=== PATIENT | female | born 1960 | race Caucasian/White ===

== ENCOUNTER → 2016-10-02 | Outpatient (CLI) | payer BC ==
[~2016-10-02] MED LIST: ACET-1079 PO; ALB2.5IS NEB; ALPR0.254 PO; ASPI325T4 PO; ATEN-60 PO; ATOR20TA50 PO; FAM20T PO; FLUT500M2 IN; GABA800T87 PO; INSLANTI SC; LORA-655 PO; NAS17NSL; NOR10T PO; PHEN1TAB64 PO; PREG75CA PO; TRIA37.575 PO; TRIATAB3 PO; ZAFI1TAB2 PO
[2016-10-02 12:22] LABS: Basophils # (auto) 0.1 uL; Basophils % (auto) 0.5 % (0.0-2.0); Eosinophils # (auto) 0 uL; Hematocrit 44.2 % (36.0-46.0); Hemoglobin 14.6 g/dL (12.2-16.2); Lymphocytes # (auto) 3.4 uL; Lymphocytes % (auto) 29.8 % (10.0-50.0); Mean Corpuscular Hemoglobin 31.5 pg (28.0-32.0); Mean Corpuscular Hgb Conc. 33.1 g/dL (32.0-36.0); Mean Corpuscular Volume 95.3 fL (80.0-100.0); Mean Platelet Volume 8.9 fL (7.4-10.4); Monocytes # (auto) 0.8 uL; Neutrophils # (auto) 7.2 uL; Neutrophils % (auto) 62.7 % (37.0-80.0); Platelet Count (auto) 266 10^3/uL (140-450); Red Cell Distribution Width 13.6 % (11.6-16.0); SUSPECT VIEW TRANSMISSION; White Blood Cell 11.5 10^3/uL (4.4-10.8)
[2016-10-02 12:53] LABS: Albumin 3.5 g/dL (3.4-5.0); Alkaline Phosphatase 119 U/L (45-117); Anion Gap 11 (5-15); Aspartate Aminotransferase 20 U/L (15-37); BUN/Creatinine Ratio 23.2; Bilirubin, Direct < 0.1 mg/dL (0-0.2); Bilirubin, Total 0.4 mg/dL (0.2-1.0); Blood Urea Nitrogen 23 mg/dL (7-18); Calcium 9.2 mg/dL (8.5-10.1); Carbon Dioxide 26 mmol/L (21-32); Chloride 105 mmol/L (98-107); Cholesterol 206 mg/dL (<200); GFR African American 74 mL/min; GFR Non-African American 61 mL/min; Glucose 116 mg/dL (74-106); HDL Cholesterol 60 mg/dL (40-59); LDL Cholesterol 133 mg/dL (<100); Potassium 4.6 mmol/L (3.5-5.1); Sodium 142 mmol/L (136-145); Total Protein 7.4 g/dL (6.4-8.2); Triglycerides 108 mg/dL (<150)
== END | disposition home or self-care (01) ==
LOC: Rad HDHVI 10:12
PROVIDERS: ATTEND Internal Medicine Cardiovascular Disease
DX: I10 Essential (primary) hypertension (principal); E78.00 Pure hypercholesterolemia, unspecified; K74.1 Hepatic sclerosis; E11.9 Type 2 diabetes mellitus without complications; E03.9 Hypothyroidism, unspecified; D64.9 Anemia, unspecified; E55.9 Vitamin D deficiency, unspecified; G40.89 Other seizures
CPT/HCPCS: 36415; 72131; 73700; 80048; 80061; 80076; 80184; 82306; 83036; 84443; 85025

== ENCOUNTER 2016-11-28 13:41 | Inpatient (IN) | payer BC ==
[~2016-11-28] VITALS: Ht 157.5 cm; Wt 129.7 kg
[2016-11-28 15:08] LABS: Basophils # (auto) 0.1 uL; Basophils % (auto) 0.4 % (0.0-2.0); Eosinophils # (auto) 0 uL; Hematocrit 42.9 % (36.0-46.0); Hemoglobin 14.3 g/dL (12.2-16.2); Lymphocytes # (auto) 2.6 uL; Lymphocytes % (auto) 18.3 % (10.0-50.0); Mean Corpuscular Hemoglobin 31.5 pg (28.0-32.0); Mean Corpuscular Hgb Conc. 33.3 g/dL (32.0-36.0); Mean Corpuscular Volume 94.5 fL (80.0-100.0); Mean Platelet Volume 8.5 fL (7.4-10.4); Monocytes # (auto) 0.6 uL; Monocytes % (auto) 4.1 % (0.0-12.0); Neutrophils # (auto) 10.8 uL; Neutrophils % (auto) 77.2 % (37.0-80.0); Platelet Count (auto) 327 10^3/uL (140-450); Red Cell Distribution Width 14.1 % (11.6-16.0); White Blood Cell 14.1 10^3/uL (4.4-10.8)
[2016-11-28 15:43] LABS: Albumin 3.5 g/dL (3.4-5.0); Alkaline Phosphatase 117 U/L (45-117); Anion Gap 10 (5-15); Aspartate Aminotransferase 15 U/L (15-37); BUN/Creatinine Ratio 23.1; Bilirubin, Total 0.3 mg/dL (0.2-1.0); Blood Urea Nitrogen 21 mg/dL (7-18); Calcium 8.9 mg/dL (8.5-10.1); Carbon Dioxide 26 mmol/L (21-32); Chloride 99 mmol/L (98-107); GFR African American 82 mL/min; GFR Non-African American 67 mL/min; Glucose 176 mg/dL (74-106); Magnesium 2.4 mg/dL (1.6-2.6); Potassium 4.3 mmol/L (3.5-5.1); Sodium 135 mmol/L (136-145); Total Protein 7.5 g/dL (6.4-8.2)
[2016-11-28] MEDS ORDERED: IOHEXOL 350 MG/ML 100ML IJ ONE ×2 (21:56→22:31)
[2016-11-29] MEDS ORDERED: ONDANSETRON HCL 4 MG/2 ML VIAL IV ONE (00:15)
[2016-11-29] MEDS ORDERED: MORPHINE SULFATE 4 MG/ML SYRG IV ONE (00:15)
[2016-11-29] MEDS ORDERED: DOCUSATE SOD 100 MG CAP PO PRN (02:00)
[2016-11-29] MEDS ORDERED: TEMAZEPAM 15 MG CAP PO PRN (02:00)
[2016-11-29] MEDS ORDERED: ONDANSETRON HCL 4 MG/2 ML VIAL IV PRN (02:00)
[2016-11-29] MEDS: ALBUTEROL SULF 2.5 MG/0.5ML(0.5%) NEB SOLN NEB SCH ×6 (02:40→22:20)
[2016-11-29] MEDS: IPRATROPIUM BROM 0.5 MG/2.5ML INH SOL NEB SCH ×6 (02:40→22:21)
[2016-11-29 03:00] VITALS: BP 152/79
[2016-11-29] MEDS: ACETAMINOPHEN 325 MG TAB PO PRN ×2 (03:09→09:22)
[2016-11-29] MEDS ORDERED: LEVO25TA6 PO (05:21)
[2016-11-29] MEDS ORDERED: PRO625LQ PO (05:21)
[2016-11-29] MEDS: SODIUM CHLOR 0.9% PF (SALINE LOCK) 10ML VIAL IV SCH ×3 (05:46→21:51)
[2016-11-29] MEDS ORDERED: methylPREDNISolone SOD SUCC 125 MG/2 ML VL IV SCH (06:00)
[2016-11-29 09:00] VITALS: BP 123/67
[2016-11-29] MEDS: MORPHINE SULF INJ 2 MG/ML SYRINGE 1ML IV PRN ×2 (09:24→16:49)
[2016-11-29] MEDS: FAMOTIDINE 20 MG TAB PO SCH ×2 (09:24→21:42)
[2016-11-29] MEDS ORDERED: DEXTROSE (50%) 50ML SYRG IV PRN (10:45)
[2016-11-29] MEDS ORDERED: LORazepam 0.5 MG TAB PO PRN (11:30)
[2016-11-29] MEDS: InsuLIN REG 1unit/0.01ml Soln (100units/ml) SC SCH ×3 (11:47→21:46)
[2016-11-29] MEDS: ACCU-CHEK COMFORT CURVE STRIP VI SCH ×3 (11:47→21:47)
[2016-11-29] MEDS ORDERED: predniSONE 5 MG TAB PO SCH (12:00)
[2016-11-29] MEDS ORDERED: PHENobarbital 32.4 MG TAB PO SCH ×2 (12:00→22:00)
[2016-11-29] MEDS: GABAPENTIN 400 MG CAP PO SCH ×2 (12:13→21:43)
[2016-11-29] MEDS: ATENOLOL 25 MG TAB PO SCH ×2 (12:13→21:43)
[2016-11-29] MEDS: ASPirin 325 MG TAB PO SCH (12:14)
[2016-11-29] MEDS: RANOLAZINE ER 500 MG TAB PO SCH ×2 (12:15→21:59)
[2016-11-29] MEDS ORDERED: GABA400C PO (12:19)
[2016-11-29] MEDS ORDERED: PHEN32.49 PO (12:23)
[2016-11-29] MEDS ORDERED: RANO1000 PO (12:23)
[2016-11-29] MEDS ORDERED: FLUT500M2 INH (12:26)
[2016-11-29 13:00] VITALS: BP 110/58
[2016-11-29] MEDS ORDERED: cefTRIAXone 1GM/50ML D5W 50 ML IV ONE (16:00)
[2016-11-29] MEDS ORDERED: AZITHROMYCIN 250 MG TAB PO ONE (16:00)
[2016-11-29 18:25] VITALS: BP 105/49
[2016-11-29 21:00] VITALS: BP 106/58
[2016-11-29] MEDS: methylPREDNISolone SOD SUCC 40 MG/ML VL IV SCH (21:42)
[2016-11-29] MEDS: PREGABALIN CAPSULE 75 MG CAP PO SCH (21:43)
[2016-11-29] MEDS: ATORVASTATIN 20 MG TAB PO SCH (21:43)
[2016-11-29] MEDS: ALPRAZolam 0.25 MG TAB PO SCH (21:44)
[2016-11-29] MEDS ORDERED: TRIAMTERENE/HCTZ 37.5/25 MG CAP PO SCH (22:00)
[2016-11-29] MEDS: INSULIN DETEMIR(LEVEMIR) 1unit/0.01ml Soln (100units/ml) SC SCH (22:19)
[2016-11-30] MEDS ORDERED: DOXY1CAP82 PO (01:23)
[2016-11-30] MEDS ORDERED: PHEN32.49 PO ×3 (01:23→01:31)
[2016-11-30] MEDS: IPRATROPIUM BROM 0.5 MG/2.5ML INH SOL NEB SCH ×6 (02:23→19:00)
[2016-11-30] MEDS: ALBUTEROL SULF 2.5 MG/0.5ML(0.5%) NEB SOLN NEB SCH ×6 (02:23→23:35)
[2016-11-30 05:00] VITALS: BP 138/58
[2016-11-30] MEDS: GABAPENTIN 400 MG CAP PO SCH ×3 (05:38→21:37)
[2016-11-30] MEDS: LEVOTHYROXINE SODIUM 25 MCG TAB PO SCH (05:38)
[2016-11-30] MEDS: SODIUM CHLOR 0.9% PF (SALINE LOCK) 10ML VIAL IV SCH ×3 (05:52→21:40)
[2016-11-30] MEDS: HYDROcodone-ACET 10/325MG TAB PO PRN ×2 (05:55→20:47)
[2016-11-30] MEDS: InsuLIN REG 1unit/0.01ml Soln (100units/ml) SC SCH ×4 (06:22→22:00)
[2016-11-30] MEDS: ACCU-CHEK COMFORT CURVE STRIP VI SCH ×4 (06:22→22:00)
[2016-11-30] MEDS: INSULIN DETEMIR(LEVEMIR) 1unit/0.01ml Soln (100units/ml) SC SCH ×2 (06:25→23:08)
[2016-11-30 06:56] LABS: Basophils # (auto) 0 uL; Basophils % (auto) 0.3 % (0.0-2.0); Eosinophils # (auto) 0 uL; Eosinophils % (auto) 0.1 % (0.0-7.0); Hematocrit 40.7 % (36.0-46.0); Hemoglobin 13.8 g/dL (12.2-16.2); Lymphocytes # (auto) 3.2 uL; Lymphocytes % (auto) 27.9 % (10.0-50.0); Mean Corpuscular Hemoglobin 32.2 pg (28.0-32.0); Mean Corpuscular Hgb Conc. 33.9 g/dL (32.0-36.0); Mean Corpuscular Volume 94.8 fL (80.0-100.0); Mean Platelet Volume 9.1 fL (7.4-10.4); Monocytes # (auto) 0.8 uL; Monocytes % (auto) 6.8 % (0.0-12.0); Neutrophils # (auto) 7.4 uL; Neutrophils % (auto) 64.9 % (37.0-80.0); Platelet Count (auto) 293 10^3/uL (140-450); Red Cell Distribution Width 14.3 % (11.6-16.0); White Blood Cell 11.3 10^3/uL (4.4-10.8)
[2016-11-30 07:41] LABS: Albumin 3.4 g/dL (3.4-5.0); BUN/Creatinine Ratio 21.8; Bilirubin, Total 0.4 mg/dL (0.2-1.0); Calcium 8.9 mg/dL (8.5-10.1); Potassium 4.7 mmol/L (3.5-5.1); Total Protein 7.4 g/dL (6.4-8.2)
[2016-11-30 07:56] VITALS: BP 138/58
[2016-11-30 08:32] VITALS: BP 88/47
[2016-11-30] MEDS: cefTRIAXone 1GM/50ML D5W 50 ML IV SCH (09:09)
[2016-11-30] MEDS: methylPREDNISolone SOD SUCC 40 MG/ML VL IV SCH ×2 (09:09→21:39)
[2016-11-30] MEDS: PREGABALIN CAPSULE 75 MG CAP PO SCH ×2 (09:10→21:37)
[2016-11-30] MEDS: ASPirin 325 MG TAB PO SCH (09:10)
[2016-11-30] MEDS: ALPRAZolam 0.25 MG TAB PO SCH (09:10)
[2016-11-30] MEDS: AZITHROMYCIN 250 MG TAB PO SCH (09:10)
[2016-11-30] MEDS: TRIAMTERENE/HCTZ 37.5/25 MG CAP PO SCH (09:11)
[2016-11-30] MEDS: ATENOLOL 25 MG TAB PO SCH ×2 (09:11→21:39)
[2016-11-30] MEDS: FAMOTIDINE 20 MG TAB PO SCH ×2 (09:11→21:37)
[2016-11-30] MEDS: RANOLAZINE ER 500 MG TAB PO SCH ×2 (09:31→21:39)
[2016-11-30] MEDS ORDERED: AZITHROMYCIN 500MG/D5W 250ML 250 ML IV SCH (10:00)
[2016-11-30] MEDS ORDERED: TRIAMTERENE/HCTZ 37.5/25 MG CAP PO SCH (10:00)
[2016-11-30] MEDS ORDERED: PATIENTS OWN MEDICATION PO SCH ×2 (10:00)
[2016-11-30 12:35] LABS: Urine Bilirubin Negative (Negative); Urine Blood Negative /uL (Negative); Urine Color Yellow (Yellow); Urine Glucose Normal (Normal); Urine Ketone Negative (Negative); Urine Nitrite Negative (Negative); Urine RBC 1 /hpf (0 - 4); Urine Squamous Epithelial Cell FEW /hpf (<5); Urine Urobilinogen Normal (Negative); Urine pH 6.5 (5.0-8.0)
[2016-11-30] MEDS: LORazepam 0.5 MG TAB PO PRN (13:41)
[2016-11-30 13:51] VITALS: BP 114/67
[2016-11-30 17:12] VITALS: BP 118/70
[2016-11-30] MEDS: MORPHINE SULF INJ 2 MG/ML SYRINGE 1ML IV PRN (17:36)
[2016-11-30] MEDS: ATORVASTATIN 20 MG TAB PO SCH (21:37)
[2016-11-30] MEDS: PHENobarbital 32.4 MG TAB PO SCH (21:38)
[2016-11-30 22:00] VITALS: BP 132/56
[2016-12-01] MEDS: IPRATROPIUM BROM 0.5 MG/2.5ML INH SOL NEB SCH ×6 (02:00→22:52)
[2016-12-01] MEDS: ALBUTEROL SULF 2.5 MG/0.5ML(0.5%) NEB SOLN NEB SCH ×6 (02:00→22:52)
[2016-12-01] MEDS: MORPHINE SULF INJ 2 MG/ML SYRINGE 1ML IV PRN ×2 (04:37→15:15)
[2016-12-01 05:55] VITALS: BP 115/68
[2016-12-01] MEDS: SODIUM CHLOR 0.9% PF (SALINE LOCK) 10ML VIAL IV SCH ×3 (06:19→21:25)
[2016-12-01] MEDS: ACCU-CHEK COMFORT CURVE STRIP VI SCH ×4 (06:20→20:59)
[2016-12-01] MEDS: LEVOTHYROXINE SODIUM 25 MCG TAB PO SCH (06:20)
[2016-12-01] MEDS: InsuLIN REG 1unit/0.01ml Soln (100units/ml) SC SCH ×4 (06:20→21:29)
[2016-12-01] MEDS: GABAPENTIN 400 MG CAP PO SCH ×3 (06:20→21:38)
[2016-12-01] MEDS: INSULIN DETEMIR(LEVEMIR) 1unit/0.01ml Soln (100units/ml) SC SCH ×2 (06:27→21:49)
[2016-12-01 09:00] VITALS: BP 120/76
[2016-12-01] MEDS: cefTRIAXone 1GM/50ML D5W 50 ML IV SCH (09:00)
[2016-12-01] MEDS: RANOLAZINE ER 500 MG TAB PO SCH ×2 (10:00→21:29)
[2016-12-01] MEDS: methylPREDNISolone SOD SUCC 40 MG/ML VL IV SCH ×2 (10:00→21:25)
[2016-12-01] MEDS: ASPirin 325 MG TAB PO SCH (10:39)
[2016-12-01] MEDS: PREGABALIN CAPSULE 75 MG CAP PO SCH ×2 (10:39→21:26)
[2016-12-01] MEDS: TRIAMTERENE/HCTZ 37.5/25 MG CAP PO SCH (10:40)
[2016-12-01] MEDS: AZITHROMYCIN 250 MG TAB PO SCH (10:40)
[2016-12-01] MEDS: LORazepam 0.5 MG TAB PO PRN ×2 (10:40→22:08)
[2016-12-01] MEDS: FAMOTIDINE 20 MG TAB PO SCH ×2 (10:41→21:26)
[2016-12-01] MEDS: HYDROcodone-ACET 10/325MG TAB PO PRN ×2 (10:41→20:45)
[2016-12-01] MEDS: ATENOLOL 25 MG TAB PO SCH ×2 (10:41→21:40)
[2016-12-01 13:00] VITALS: BP 112/70
[2016-12-01 17:00] VITALS: BP 99/62
[2016-12-01 21:16] VITALS: BP 104/57
[2016-12-01] MEDS: PHENobarbital 32.4 MG TAB PO SCH (21:26)
[2016-12-01] MEDS: ATORVASTATIN 20 MG TAB PO SCH (21:26)
[2016-12-02] VITALS (7 sets, daily range): BP systolic 104–133; BP diastolic 65–84
[2016-12-02] MEDS: ALBUTEROL SULF 2.5 MG/0.5ML(0.5%) NEB SOLN NEB SCH ×6 (02:22→23:00)
[2016-12-02] MEDS: IPRATROPIUM BROM 0.5 MG/2.5ML INH SOL NEB SCH ×6 (02:22→23:00)
[2016-12-02] MEDS: MORPHINE SULF INJ 2 MG/ML SYRINGE 1ML IV PRN ×3 (03:49→17:55)
[2016-12-02] MEDS: GABAPENTIN 400 MG CAP PO SCH ×3 (06:24→22:39)
[2016-12-02] MEDS: LEVOTHYROXINE SODIUM 25 MCG TAB PO SCH ×2 (06:24→22:40)
[2016-12-02] MEDS: SODIUM CHLOR 0.9% PF (SALINE LOCK) 10ML VIAL IV SCH ×3 (06:24→22:38)
[2016-12-02] MEDS: ACCU-CHEK COMFORT CURVE STRIP VI SCH ×4 (06:25→22:41)
[2016-12-02] MEDS: InsuLIN REG 1unit/0.01ml Soln (100units/ml) SC SCH ×4 (06:31→22:41)
[2016-12-02] MEDS: INSULIN DETEMIR(LEVEMIR) 1unit/0.01ml Soln (100units/ml) SC SCH ×2 (06:32→22:51)
[2016-12-02] MEDS: HYDROcodone-ACET 10/325MG TAB PO PRN ×3 (06:33→22:40)
[2016-12-02] MEDS: methylPREDNISolone SOD SUCC 40 MG/ML VL IV SCH ×2 (09:31→22:39)
[2016-12-02] MEDS: cefTRIAXone 1GM/50ML D5W 50 ML IV SCH (09:32)
[2016-12-02] MEDS: RANOLAZINE ER 500 MG TAB PO SCH ×2 (09:33→22:39)
[2016-12-02] MEDS: AZITHROMYCIN 250 MG TAB PO SCH (09:34)
[2016-12-02] MEDS: TRIAMTERENE/HCTZ 37.5/25 MG CAP PO SCH (09:35)
[2016-12-02] MEDS: PREGABALIN CAPSULE 75 MG CAP PO SCH ×2 (09:35→22:40)
[2016-12-02] MEDS: ASPirin 325 MG TAB PO SCH (09:40)
[2016-12-02] MEDS: FAMOTIDINE 20 MG TAB PO SCH ×2 (09:42→22:40)
[2016-12-02] MEDS: ATENOLOL 25 MG TAB PO SCH ×2 (09:43→22:40)
[2016-12-02] MEDS: ACETAMINOPHEN 325 MG TAB PO PRN (12:57)
[2016-12-02] MEDS: LORazepam 0.5 MG TAB PO PRN ×2 (12:57→20:59)
[2016-12-02] MEDS: PHENobarbital 32.4 MG TAB PO SCH (22:39)
[2016-12-02] MEDS: ATORVASTATIN 20 MG TAB PO SCH (22:40)
[2016-12-03] MEDS: ALBUTEROL SULF 2.5 MG/0.5ML(0.5%) NEB SOLN NEB SCH ×5 (02:11→23:01)
[2016-12-03] MEDS: IPRATROPIUM BROM 0.5 MG/2.5ML INH SOL NEB SCH ×5 (02:11→23:01)
[2016-12-03] MEDS: MORPHINE SULF INJ 2 MG/ML SYRINGE 1ML IV PRN ×3 (03:19→20:00)
[2016-12-03 04:57] VITALS: BP 125/82
[2016-12-03] MEDS: SODIUM CHLOR 0.9% PF (SALINE LOCK) 10ML VIAL IV SCH ×3 (05:28→21:53)
[2016-12-03] MEDS: GABAPENTIN 400 MG CAP PO SCH ×4 (05:28→22:26)
[2016-12-03] MEDS: ACETAMINOPHEN 325 MG TAB PO PRN (05:29)
[2016-12-03] MEDS: InsuLIN REG 1unit/0.01ml Soln (100units/ml) SC SCH ×4 (06:42→22:00)
[2016-12-03] MEDS: LEVOTHYROXINE SODIUM 25 MCG TAB PO SCH (06:42)
[2016-12-03] MEDS: ACCU-CHEK COMFORT CURVE STRIP VI SCH ×4 (06:43→22:27)
[2016-12-03] MEDS: INSULIN DETEMIR(LEVEMIR) 1unit/0.01ml Soln (100units/ml) SC SCH ×2 (06:45→22:28)
[2016-12-03 09:00] VITALS: BP 123/73
[2016-12-03] MEDS: methylPREDNISolone SOD SUCC 40 MG/ML VL IV SCH ×2 (10:19→21:53)
[2016-12-03] MEDS: PREGABALIN CAPSULE 75 MG CAP PO SCH ×2 (10:19→21:54)
[2016-12-03] MEDS: ASPirin 325 MG TAB PO SCH (10:20)
[2016-12-03] MEDS: TRIAMTERENE/HCTZ 37.5/25 MG CAP PO SCH (10:20)
[2016-12-03] MEDS: FAMOTIDINE 20 MG TAB PO SCH ×2 (10:20→21:55)
[2016-12-03] MEDS: ATENOLOL 25 MG TAB PO SCH ×2 (10:21→21:56)
[2016-12-03] MEDS: RANOLAZINE ER 500 MG TAB PO SCH ×2 (10:22→21:55)
[2016-12-03] MEDS: AZITHROMYCIN 250 MG TAB PO SCH (10:22)
[2016-12-03] MEDS: HYDROcodone-ACET 10/325MG TAB PO PRN ×2 (10:27→16:10)
[2016-12-03] MEDS: cefTRIAXone 1GM/50ML D5W 50 ML IV SCH (10:28)
[2016-12-03 13:00] VITALS: BP 134/79
[2016-12-03] MEDS: LORazepam 0.5 MG TAB PO PRN ×2 (14:50→23:30)
[2016-12-03 17:00] VITALS: BP 153/70
[2016-12-03 20:29] LABS: Basophils # (auto) 0.2 uL; Eosinophils # (auto) 0 uL; Eosinophils % (auto) 0.1 % (0.0-7.0); Hematocrit 41.2 % (36.0-46.0); Hemoglobin 13.7 g/dL (12.2-16.2); Lymphocytes # (auto) 4.2 uL; Lymphocytes % (auto) 24.5 % (10.0-50.0); Mean Corpuscular Hemoglobin 31.6 pg (28.0-32.0); Mean Corpuscular Hgb Conc. 33.3 g/dL (32.0-36.0); Mean Corpuscular Volume 94.9 fL (80.0-100.0); Mean Platelet Volume 8.8 fL (7.4-10.4); Monocytes # (auto) 1.1 uL; Monocytes % (auto) 6.7 % (0.0-12.0); Neutrophils # (auto) 11.6 uL; Neutrophils % (auto) 67.7 % (37.0-80.0); Platelet Count (auto) 317 10^3/uL (140-450); Red Cell Distribution Width 13.8 % (11.6-16.0); White Blood Cell 17.1 10^3/uL (4.4-10.8)
[2016-12-03 20:53] LABS: Albumin 3.5 g/dL (3.4-5.0); BUN/Creatinine Ratio 18.7; Bilirubin, Total 0.4 mg/dL (0.2-1.0); Calcium 8.9 mg/dL (8.5-10.1); Potassium 4.2 mmol/L (3.5-5.1); Total Protein 7.5 g/dL (6.4-8.2)
[2016-12-03] MEDS: ATORVASTATIN 20 MG TAB PO SCH (21:54)
[2016-12-03 22:00] VITALS: BP 128/62
[2016-12-03] MEDS: PHENobarbital 32.4 MG TAB PO SCH (22:27)
[2016-12-04] MEDS: ALBUTEROL SULF 2.5 MG/0.5ML(0.5%) NEB SOLN NEB SCH ×6 (02:35→22:22)
[2016-12-04] MEDS: IPRATROPIUM BROM 0.5 MG/2.5ML INH SOL NEB SCH ×6 (02:35→22:21)
[2016-12-04] MEDS: HYDROcodone-ACET 10/325MG TAB PO PRN ×2 (04:45→22:58)
[2016-12-04 06:00] VITALS: BP 140/82
[2016-12-04] MEDS: MORPHINE SULF INJ 2 MG/ML SYRINGE 1ML IV PRN ×2 (06:21→13:42)
[2016-12-04] MEDS: SODIUM CHLOR 0.9% PF (SALINE LOCK) 10ML VIAL IV SCH ×3 (06:21→22:41)
[2016-12-04] MEDS: ACCU-CHEK COMFORT CURVE STRIP VI SCH ×4 (06:42→22:43)
[2016-12-04] MEDS: GABAPENTIN 400 MG CAP PO SCH ×3 (06:42→22:42)
[2016-12-04] MEDS: INSULIN DETEMIR(LEVEMIR) 1unit/0.01ml Soln (100units/ml) SC SCH ×2 (06:43→22:49)
[2016-12-04] MEDS: InsuLIN REG 1unit/0.01ml Soln (100units/ml) SC SCH ×4 (06:43→22:43)
[2016-12-04] MEDS: LEVOTHYROXINE SODIUM 25 MCG TAB PO SCH (06:44)
[2016-12-04 09:00] VITALS: BP 102/66
[2016-12-04] MEDS: TRIAMTERENE/HCTZ 37.5/25 MG CAP PO SCH (09:01)
[2016-12-04] MEDS: ASPirin 325 MG TAB PO SCH (09:01)
[2016-12-04] MEDS: PREGABALIN CAPSULE 75 MG CAP PO SCH ×2 (09:02→22:42)
[2016-12-04] MEDS: cefTRIAXone 1GM/50ML D5W 50 ML IV SCH (09:02)
[2016-12-04] MEDS: FAMOTIDINE 20 MG TAB PO SCH ×2 (09:02→22:42)
[2016-12-04] MEDS: AZITHROMYCIN 250 MG TAB PO SCH (09:02)
[2016-12-04] MEDS: methylPREDNISolone SOD SUCC 40 MG/ML VL IV SCH ×2 (09:03→22:41)
[2016-12-04] MEDS: RANOLAZINE ER 500 MG TAB PO SCH ×2 (09:15→22:42)
[2016-12-04] MEDS: LORazepam 0.5 MG TAB PO PRN ×2 (09:18→22:48)
[2016-12-04] MEDS: ATENOLOL 25 MG TAB PO SCH ×2 (10:00→22:42)
[2016-12-04 13:00] VITALS: BP 129/74
[2016-12-04 17:00] VITALS: BP 131/66
[2016-12-04 22:00] VITALS: BP 132/71
[2016-12-04] MEDS: ATORVASTATIN 20 MG TAB PO SCH (22:41)
[2016-12-04] MEDS: PHENobarbital 32.4 MG TAB PO SCH (22:41)
[2016-12-05] MEDS: ALBUTEROL SULF 2.5 MG/0.5ML(0.5%) NEB SOLN NEB SCH ×4 (02:01→14:46)
[2016-12-05] MEDS: IPRATROPIUM BROM 0.5 MG/2.5ML INH SOL NEB SCH ×4 (02:01→14:46)
[2016-12-05 05:30] VITALS: BP 125/81
[2016-12-05] MEDS: GABAPENTIN 400 MG CAP PO SCH ×2 (05:45→14:05)
[2016-12-05] MEDS: LEVOTHYROXINE SODIUM 25 MCG TAB PO SCH (05:45)
[2016-12-05] MEDS: SODIUM CHLOR 0.9% PF (SALINE LOCK) 10ML VIAL IV SCH ×2 (05:45→14:18)
[2016-12-05] MEDS: ACCU-CHEK COMFORT CURVE STRIP VI SCH ×2 (05:46→11:34)
[2016-12-05] MEDS: InsuLIN REG 1unit/0.01ml Soln (100units/ml) SC SCH ×2 (05:46→12:15)
[2016-12-05] MEDS: LORazepam 0.5 MG TAB PO PRN ×2 (05:53→14:05)
[2016-12-05] MEDS: HYDROcodone-ACET 10/325MG TAB PO PRN ×2 (05:54→14:18)
[2016-12-05] MEDS: INSULIN DETEMIR(LEVEMIR) 1unit/0.01ml Soln (100units/ml) SC SCH (06:40)
[2016-12-05] MEDS: cefTRIAXone 1GM/50ML D5W 50 ML IV SCH (08:37)
[2016-12-05] MEDS: ASPirin 325 MG TAB PO SCH (08:38)
[2016-12-05] MEDS: ATENOLOL 25 MG TAB PO SCH (08:39)
[2016-12-05] MEDS: AZITHROMYCIN 250 MG TAB PO SCH (08:39)
[2016-12-05] MEDS: FAMOTIDINE 20 MG TAB PO SCH (09:09)
[2016-12-05] MEDS: TRIAMTERENE/HCTZ 37.5/25 MG CAP PO SCH (09:09)
[2016-12-05] MEDS: PREGABALIN CAPSULE 75 MG CAP PO SCH (09:10)
[2016-12-05] MEDS: methylPREDNISolone SOD SUCC 40 MG/ML VL IV SCH (09:11)
[2016-12-05 09:12] VITALS: BP 122/69
[2016-12-05] MEDS: MORPHINE SULF INJ 2 MG/ML SYRINGE 1ML IV PRN (09:12)
[2016-12-05] MEDS: RANOLAZINE ER 500 MG TAB PO SCH (11:30)
[2016-12-05 12:38] VITALS: BP 127/56
[2016-12-05 15:24] VITALS: BP 127/56
[2016-12-05 16:25] VITALS: BP 115/65
== END 2016-12-05 16:50 | disposition home or self-care (01) | DRG 190 ==
LOC: ER 13:46 → EAST 13:47 → TELE-EAST 11-29 02:49
PROVIDERS: ADMIT Internal Medicine; ATTEND Internal Medicine Cardiovascular Disease
PROC: 5A09557 Assistance with Respiratory Ventilation, Greater than 96 Consecutive Hours, Continuous Positive Airway Pressure (ICD-10-PCS; principal; 2016-11-29)
DX: J44.0 Chronic obstructive pulmonary disease with (acute) lower respiratory infection (principal); J18.9 Pneumonia, unspecified organism; J96.10 Chronic respiratory failure, unspecified whether with hypoxia or hypercapnia; Z68.43 Body mass index [BMI] 50.0-59.9, adult; J44.1 Chronic obstructive pulmonary disease with (acute) exacerbation; E66.01 Morbid (severe) obesity due to excess calories; E03.9 Hypothyroidism, unspecified; E78.5 Hyperlipidemia, unspecified; E11.40 Type 2 diabetes mellitus with diabetic neuropathy, unspecified; G89.29 Other chronic pain; F32.9 Major depressive disorder, single episode, unspecified; J40 Bronchitis, not specified as acute or chronic; E11.69 Type 2 diabetes mellitus with other specified complication; E11.21 Type 2 diabetes mellitus with diabetic nephropathy; Z77.22 Contact with and (suspected) exposure to environmental tobacco smoke (acute) (chronic); F41.9 Anxiety disorder, unspecified; G40.909 Epilepsy, unspecified, not intractable, without status epilepticus; I10 Essential (primary) hypertension; K21.9 Gastro-esophageal reflux disease without esophagitis; Z82.49 Family history of ischemic heart disease and other diseases of the circulatory system; Z90.49 Acquired absence of other specified parts of digestive tract
CPT/HCPCS: 36415; 71010; 71020; 71275; 80053; 81001; 82962; 83036; 83735; 84484; 85025; 93005; 94640; 94660; 96374; 96375; J0696; J1815; J2405

== ENCOUNTER → 2016-12-11 | Outpatient (CLI) | payer BC ==
[~2016-12-11] MED LIST changes: +DOXY1CAP82 PO; +FLUT500M2 INH; +GABA400C PO; -GABA800T87 PO; +LEVO25TA6 PO; +PHEN32.49 PO; +PRO625LQ PO; +RANO1000 PO; -TRIA37.575 PO
== END | disposition home or self-care (01) ==
LOC: Rad HDHVI 15:41
PROVIDERS: ATTEND Internal Medicine Cardiovascular Disease
DX: I11.0 Hypertensive heart disease with heart failure (principal); I50.9 Heart failure, unspecified; I70.0 Atherosclerosis of aorta; I25.10 Atherosclerotic heart disease of native coronary artery without angina pectoris; E78.5 Hyperlipidemia, unspecified
CPT/HCPCS: 71020

== ENCOUNTER → 2017-05-07 | Outpatient (CLI) | payer BC ==
[2017-05-07 12:32] LABS: Basophils # (auto) 0.1 uL; Basophils % (auto) 0.5 % (0.0-2.0); Eosinophils # (auto) 0 uL; Hematocrit 45.4 % (36.0-46.0); Hemoglobin 15.6 g/dL (12.2-16.2); Lymphocytes # (auto) 3.6 uL; Lymphocytes % (auto) 35.8 % (10.0-50.0); Mean Corpuscular Hemoglobin 32.1 pg (28.0-32.0); Mean Corpuscular Hgb Conc. 34.3 g/dL (32.0-36.0); Mean Corpuscular Volume 93.7 fL (80.0-100.0); Monocytes # (auto) 0.8 uL; Monocytes % (auto) 8.3 % (0.0-12.0); Neutrophils # (auto) 5.6 uL; Neutrophils % (auto) 55.4 % (37.0-80.0); Nucleated Red Blood Cells % 0.3 %; Platelet Count (auto) 266 10^3/uL (140-450); Red Blood Cells 4.85 10^6/uL (4.0-5.20); Red Cell Distribution Width 13.7 % (11.8-14.3); White Blood Cell 10.1 10^3/uL (4.4-10.8)
[2017-05-07 12:47] LABS: Albumin 3.9 g/dL (3.4-5.0); BUN/Creatinine Ratio 15.7; Bilirubin, Total 0.4 mg/dL (0.2-1.0); Calcium 9.5 mg/dL (8.5-10.1); Potassium 4.1 mmol/L (3.5-5.1); Total Protein 8.4 g/dL (6.4-8.2)
== END | disposition home or self-care (01) ==
LOC: Rad HDHVI 09:48
PROVIDERS: ATTEND Internal Medicine Cardiovascular Disease
DX: M46.87 Other specified inflammatory spondylopathies, lumbosacral region (principal); M53.3 Sacrococcygeal disorders, not elsewhere classified; E11.49 Type 2 diabetes mellitus with other diabetic neurological complication; E66.1 Drug-induced obesity; G40.909 Epilepsy, unspecified, not intractable, without status epilepticus; G89.29 Other chronic pain; W19.XXXA Unspecified fall, initial encounter; Y93.89 Activity, other specified; Y92.89 Other specified places as the place of occurrence of the external cause; Y99.8 Other external cause status
CPT/HCPCS: 36415; 72100; 72220; 80053; 80184; 83036; 84439; 84443; 85025

== ENCOUNTER → 2017-07-23 | Outpatient (CLI) | payer BC ==
[~2017-07-23] MED LIST changes: +CYANOCOBALAMIN (B-12) 1000 MCG/1 ML VIAL ONE; +FUROSEMIDE 40 MG/4 ML VIAL ONE; +POTASSIUM CHL 10 Meq TABLET PO ONE; +THIAMINE HCL 100 MG/ML 2ML VIAL ONE
[2017-07-23 16:42] LABS: Basophils # (auto) 0 uL; Basophils % (auto) 0.4 % (0.0-2.0); Eosinophils # (auto) 0 uL; Hemoglobin 13.2 g/dL (12.2-16.2); Lymphocytes # (auto) 3.2 uL; Mean Corpuscular Hemoglobin 31.3 pg (28.0-32.0); Mean Corpuscular Hgb Conc. 33.1 g/dL (32.0-36.0); Mean Corpuscular Volume 94.5 fL (80.0-100.0); Monocytes # (auto) 0.9 uL; Monocytes % (auto) 8.7 % (0.0-12.0); Neutrophils # (auto) 6.5 uL; Neutrophils % (auto) 60.9 % (37.0-80.0); Platelet Count (auto) 216 10^3/uL (140-450); Red Blood Cells 4.23 10^6/uL (4.0-5.20); Red Cell Distribution Width 12.7 % (11.8-14.3); White Blood Cell 10.6 10^3/uL (4.4-10.8)
[2017-07-23 16:51] LABS: Albumin 3.2 g/dL (3.4-5.0); Bilirubin, Total 0.3 mg/dL (0.2-1.0); Calcium 8.3 mg/dL (8.5-10.1); Potassium 3.4 mmol/L (3.5-5.1)
[2017-07-23 17:01] LABS: Urine Blood Negative /uL (Negative); Urine Specific Gravity 1.011 (1.001-1.035)
== END | disposition home or self-care (01) ==
LOC: CHF HDHVI 14:36
PROVIDERS: ATTEND Internal Medicine Cardiovascular Disease
DX: I10 Essential (primary) hypertension (principal); D64.9 Anemia, unspecified; J44.9 Chronic obstructive pulmonary disease, unspecified; E78.00 Pure hypercholesterolemia, unspecified; E03.9 Hypothyroidism, unspecified; E55.9 Vitamin D deficiency, unspecified; K74.1 Hepatic sclerosis; E11.9 Type 2 diabetes mellitus without complications; N39.0 Urinary tract infection, site not specified
CPT/HCPCS: 36415; 80053; 80061; 81003; 82306; 82962; 83036; 84443; 85025; 87086; 96374; G0463; J1940; J3420; 96372

== ENCOUNTER → 2018-02-11 | Outpatient (CLI) | payer BC ==
[~2018-02-11] VITALS: Ht 157.5 cm; Wt 121.1 kg
[~2018-02-11] MED LIST changes: +ADENOSINE 102 MG in GIVE UN-DILUTED 0 ML IV ONE; +ADENOSINE 90 MG/30 ML INJ IV ONE; -CYANOCOBALAMIN (B-12) 1000 MCG/1 ML VIAL ONE; -FUROSEMIDE 40 MG/4 ML VIAL ONE; -POTASSIUM CHL 10 Meq TABLET PO ONE; -THIAMINE HCL 100 MG/ML 2ML VIAL ONE
[2018-02-11 16:33] LABS: Basophils # (auto) 0.1 uL; Basophils % (auto) 0.9 % (0.0-2.0); Eosinophils # (auto) 0 uL; Hematocrit 42.4 % (36.0-46.0); Hemoglobin 14.2 g/dL (12.2-16.2); Lymphocytes # (auto) 2.9 uL; Lymphocytes % (auto) 32.9 % (10.0-50.0); Mean Corpuscular Hgb Conc. 33.4 g/dL (32.0-36.0); Mean Corpuscular Volume 95.8 fL (80.0-100.0); Monocytes # (auto) 0.9 uL; Monocytes % (auto) 10.8 % (0.0-12.0); Neutrophils # (auto) 4.8 uL; Neutrophils % (auto) 55.4 % (37.0-80.0); Nucleated Red Blood Cells % 0.5 %; Platelet Count (auto) 261 10^3/uL (140-450); Red Blood Cells 4.43 10^6/uL (4.0-5.20); Red Cell Distribution Width 13.1 % (11.8-14.3); White Blood Cell 8.7 10^3/uL (4.4-10.8)
[2018-02-11 16:48] LABS: Albumin 3.6 g/dL (3.4-5.0); BUN/Creatinine Ratio 20.2; Bilirubin, Total 0.3 mg/dL (0.2-1.0); Calcium 8.9 mg/dL (8.5-10.1); Potassium 3.7 mmol/L (3.5-5.1); Total Protein 7.5 g/dL (6.4-8.2)
[2018-02-11 16:53] LABS: Free T4 (Free Thyroxine) 0.96 ng/dL (0.89-1.76)
== END | disposition home or self-care (01) ==
LOC: Rad HDHVI 10:41
PROVIDERS: ATTEND Internal Medicine Cardiovascular Disease
DX: Z00.01 Encounter for general adult medical examination with abnormal findings (principal); E11.9 Type 2 diabetes mellitus without complications; I10 Essential (primary) hypertension; E03.9 Hypothyroidism, unspecified; D51.9 Vitamin B12 deficiency anemia, unspecified; G40.89 Other seizures; E55.9 Vitamin D deficiency, unspecified; M54.16 Radiculopathy, lumbar region; G47.30 Sleep apnea, unspecified; E66.9 Obesity, unspecified
CPT/HCPCS: 36415; 78452; 80053; 80061; 80184; 82306; 82607; 83036; 84439; 84443; 85025; 93005; 93306; 96374; 96375; A9500; J0153

== ENCOUNTER → 2018-03-10 | Outpatient (CLI) | payer BC ==
[~2018-03-10] MED LIST changes: -ADENOSINE 102 MG in GIVE UN-DILUTED 0 ML IV ONE; -ADENOSINE 90 MG/30 ML INJ IV ONE; +DOXY-338 PO; -DOXY1CAP82 PO; -NAS17NSL; +NAS17NSL NAS; +PRE5T PO
== END | disposition home or self-care (01) ==
LOC: Rad HDHVI 15:43
PROVIDERS: ATTEND Internal Medicine Cardiovascular Disease
DX: I82.402 Acute embolism and thrombosis of unspecified deep veins of left lower extremity (principal)
CPT/HCPCS: 93971

== ENCOUNTER → 2018-03-20 | Outpatient (CLI) | payer BC ==
[2018-03-20 09:50] VITALS: BP 138/76
[2018-03-20 10:15] VITALS: BP 130/63
[2018-03-20 12:58] LABS: Basophils # (auto) 0 uL; Basophils % (auto) 0.5 % (0.0-2.0); Eosinophils # (auto) 0 uL; Hematocrit 41.3 % (36.0-46.0); Hemoglobin 13.9 g/dL (12.2-16.2); Lymphocytes # (auto) 3.6 uL; Lymphocytes % (auto) 43.5 % (10.0-50.0); Mean Corpuscular Hemoglobin 31.7 pg (28.0-32.0); Mean Corpuscular Hgb Conc. 33.6 g/dL (32.0-36.0); Mean Corpuscular Volume 94.2 fL (80.0-100.0); Monocytes # (auto) 0.9 uL; Monocytes % (auto) 10.7 % (0.0-12.0); Neutrophils # (auto) 3.8 uL; Neutrophils % (auto) 45.3 % (37.0-80.0); Nucleated Red Blood Cells % 0.2 %; Platelet Count (auto) 249 10^3/uL (140-450); Red Blood Cells 4.39 10^6/uL (4.0-5.20); Red Cell Distribution Width 13.1 % (11.8-14.3); White Blood Cell 8.3 10^3/uL (4.4-10.8)
[2018-03-20 13:00] LABS: BUN/Creatinine Ratio 13.6; Calcium 8.9 mg/dL (8.5-10.1)
[2018-03-20 13:05] LABS: INR 0.94 (0.9-1.15); Partial Thromboplastin Time 26.8 sec (23.78-33.04); Prothrombin Time 10.1 sec (9.27-12.13)
== END | disposition home or self-care (01) ==
LOC: Rad HDHVI 09:31
PROVIDERS: ATTEND Internal Medicine Cardiovascular Disease
DX: Z01.812 Encounter for preprocedural laboratory examination (principal); I70.0 Atherosclerosis of aorta; I10 Essential (primary) hypertension; D64.9 Anemia, unspecified; R79.1 Abnormal coagulation profile; R94.31 Abnormal electrocardiogram [ECG] [EKG]
CPT/HCPCS: 36415; 71046; 80048; 85025; 85610; 85730; 93005; G0463

== ENCOUNTER → 2018-03-24 | Day surgery (SDC) | payer BC ==
[~2018-03-24] VITALS: Ht 157.5 cm; Wt 120.9 kg
[~2018-03-24] MED LIST changes: -DOXY-338 PO; +LIDOCAINE VISCOUS 2% 15ML UD PO ONE; +MIDAZOLAM HCL 1MG/1ML-2 ML VIAL IV ONE; +fentaNYL CITRATE 100 MCG/2 ML VL IV ONE
== END | disposition home or self-care (01) ==
LOC: CATH 10:50
PROVIDERS: ATTEND Internal Medicine Cardiovascular Disease
DX: R94.39 Abnormal result of other cardiovascular function study (principal); J44.9 Chronic obstructive pulmonary disease, unspecified; G47.30 Sleep apnea, unspecified; F41.0 Panic disorder [episodic paroxysmal anxiety]; F41.9 Anxiety disorder, unspecified; F32.9 Major depressive disorder, single episode, unspecified; G47.00 Insomnia, unspecified; I10 Essential (primary) hypertension; E78.5 Hyperlipidemia, unspecified; E11.9 Type 2 diabetes mellitus without complications; G47.33 Obstructive sleep apnea (adult) (pediatric); Z88.5 Allergy status to narcotic agent; Z88.8 Allergy status to other drugs, medicaments and biological substances; Z82.49 Family history of ischemic heart disease and other diseases of the circulatory system; Z84.1 Family history of disorders of kidney and ureter; Z83.3 Family history of diabetes mellitus; Z79.899 Other long term (current) drug therapy
CPT/HCPCS: 82962; 93312; J2250; J7030; 99152

== ENCOUNTER → 2018-09-08 | Outpatient (CLI) | payer BC ==
[~2018-09-08] MED LIST changes: -LIDOCAINE VISCOUS 2% 15ML UD PO ONE; -MIDAZOLAM HCL 1MG/1ML-2 ML VIAL IV ONE; -fentaNYL CITRATE 100 MCG/2 ML VL IV ONE
[2018-09-08 12:07] LABS: Basophils # (auto) 0 uL; Basophils % (auto) 0.6 % (0.0-2.0); Eosinophils # (auto) 0 uL; Hemoglobin 14.3 g/dL (12.2-16.2); Lymphocytes # (auto) 2.5 uL; Lymphocytes % (auto) 28.9 % (10.0-50.0); Mean Corpuscular Hemoglobin 31.6 pg (28.0-32.0); Mean Corpuscular Hgb Conc. 33.2 g/dL (32.0-36.0); Monocytes # (auto) 0.9 uL; Monocytes % (auto) 10.1 % (0.0-12.0); Neutrophils # (auto) 5.1 uL; Neutrophils % (auto) 60.4 % (37.0-80.0); Nucleated Red Blood Cells % 0.4 %; Platelet Count (auto) 247 10^3/uL (140-450); Red Blood Cells 4.53 10^6/uL (4.0-5.20); Red Cell Distribution Width 13.6 % (11.8-14.3); White Blood Cell 8.5 10^3/uL (4.4-10.8)
[2018-09-08 12:22] LABS: Albumin 3.5 g/dL (3.4-5.0); Calcium 9.2 mg/dL (8.5-10.1); Potassium 3.7 mmol/L (3.5-5.1)
[2018-09-08 12:23] LABS: Urine Blood Negative /uL (Negative); Urine Specific Gravity 1.014 (1.001-1.035)
[2018-09-08 12:27] LABS: BUN/Creatinine Ratio 15.8; Bilirubin, Total 0.3 mg/dL (0.2-1.0); Total Protein 7.4 g/dL (6.4-8.2)
[2018-09-08 20:15] LABS: Free T4 (Free Thyroxine) 1.22 ng/dL (0.89-1.76)
== END | disposition home or self-care (01) ==
LOC: LAB 10:09
PROVIDERS: ATTEND Internal Medicine Cardiovascular Disease
DX: E55.9 Vitamin D deficiency, unspecified (principal); E03.9 Hypothyroidism, unspecified; E11.9 Type 2 diabetes mellitus without complications; D51.9 Vitamin B12 deficiency anemia, unspecified; N39.0 Urinary tract infection, site not specified; Z79.899 Other long term (current) drug therapy
CPT/HCPCS: 36415; 80053; 80061; 80184; 81003; 82306; 82607; 83036; 84439; 84443; 85025; 87086

== ENCOUNTER → 2019-02-24 | Outpatient (CLI) | payer BC ==
[~2019-02-24] MED LIST changes: +ZAFI1TAB PO; -ZAFI1TAB2 PO
== END | disposition home or self-care (01) ==
LOC: Rad HDHVI 12:00
PROVIDERS: ATTEND Internal Medicine Cardiovascular Disease
DX: I73.9 Peripheral vascular disease, unspecified (principal)
CPT/HCPCS: 93926

== ENCOUNTER → 2019-04-30 | Outpatient (CLI) | payer BC ==
[2019-04-30 11:55] LABS: Basophils # (auto) 0.1 uL; Basophils % (auto) 0.5 % (0.0-2.0); Eosinophils # (auto) 0 uL; Hematocrit 42.6 % (36.0-46.0); Hemoglobin 14.5 g/dL (12.2-16.2); Lymphocytes # (auto) 3.3 uL; Lymphocytes % (auto) 35.4 % (10.0-50.0); Mean Corpuscular Hemoglobin 32.2 pg (28.0-32.0); Mean Corpuscular Hgb Conc. 33.9 g/dL (32.0-36.0); Mean Corpuscular Volume 94.9 fL (80.0-100.0); Monocytes % (auto) 10.4 % (0.0-12.0); Neutrophils % (auto) 53.7 % (37.0-80.0); Nucleated Red Blood Cells % 0.2 %; Platelet Count (auto) 236 10^3/uL (140-450); Red Blood Cells 4.49 10^6/uL (4.0-5.20); Red Cell Distribution Width 12.9 % (11.8-14.3); White Blood Cell 9.3 10^3/uL (4.4-10.8)
[2019-04-30 11:58] LABS: Urine Blood Negative /uL (Negative); Urine Specific Gravity 1.015 (1.001-1.035)
[2019-04-30 12:20] LABS: Albumin 3.6 g/dL (3.4-5.0); Calcium 9.2 mg/dL (8.5-10.1); Free T4 (Free Thyroxine) 0.84 ng/dL (0.89-1.76); Potassium 3.7 mmol/L (3.5-5.1)
[2019-04-30 12:24] LABS: BUN/Creatinine Ratio 19.2; Bilirubin, Total 0.3 mg/dL (0.2-1.0); Total Protein 7.3 g/dL (6.4-8.2)
== END | disposition home or self-care (01) ==
LOC: Rad HDHVI 08:41
PROVIDERS: ATTEND Internal Medicine Cardiovascular Disease
DX: Z00.00 Encounter for general adult medical examination without abnormal findings (principal); G40.89 Other seizures; E03.9 Hypothyroidism, unspecified; K90.9 Intestinal malabsorption, unspecified; N39.0 Urinary tract infection, site not specified; D51.9 Vitamin B12 deficiency anemia, unspecified; Z79.899 Other long term (current) drug therapy
CPT/HCPCS: 36415; 71046; 80053; 80061; 80184; 81003; 82306; 82607; 83036; 84439; 84443; 85025; 87086

== ENCOUNTER 2019-06-12 15:31 | Emergency (ER) | payer BC ==
[~2019-06-12] VITALS: Ht 157.5 cm; Wt 110.2 kg
[2019-06-12 16:23] VITALS: BP 135/71
[2019-06-12] MEDS ORDERED: TETANUS-DIPTH-ACEL PERTUSSIS 0.5ML SYRG IM ONE (17:30)
== END 2019-06-12 18:06 | disposition home or self-care (01) ==
LOC: ER 15:43
DX: S91.111A Laceration without foreign body of right great toe without damage to nail, initial encounter (principal); J44.9 Chronic obstructive pulmonary disease, unspecified; E11.9 Type 2 diabetes mellitus without complications; I10 Essential (primary) hypertension; K21.9 Gastro-esophageal reflux disease without esophagitis; Z90.49 Acquired absence of other specified parts of digestive tract; Z79.4 Long term (current) use of insulin; Z79.899 Other long term (current) drug therapy; Z88.8 Allergy status to other drugs, medicaments and biological substances; W54.0XXA Bitten by dog, initial encounter; Y93.89 Activity, other specified; Y99.8 Other external cause status; Y92.89 Other specified places as the place of occurrence of the external cause
CPT/HCPCS: 90471; 90715

== ENCOUNTER → 2020-02-28 | Outpatient (CLI) | payer BC ==
[~2020-02-28] MED LIST changes: -FAM20T PO; +FAMO20TA10 PO; -PHEN1TAB64 PO; +PHEN32.44 PO; -PHEN32.49 PO; +PHEN37.563 PO
[2020-02-28 16:11] LABS: Basophils # (auto) 0.1 10 ^3/uL (0-0.2); Basophils % (auto) 0.7 % (0.0-2.0); Eosinophils # (auto) 0 10 ^3/uL (0-0.8); Hematocrit 44.5 % (36.0-46.0); Hemoglobin 14.8 g/dL (12.2-16.2); Lymphocytes # (auto) 2.9 10 ^3/uL (0.4-5.4); Lymphocytes % (auto) 30.2 % (10.0-50.0); Mean Corpuscular Hemoglobin 31.1 pg (28.0-32.0); Mean Corpuscular Hgb Conc. 33.3 g/dL (32.0-36.0); Mean Corpuscular Volume 93.5 fL (80.0-100.0); Monocytes # (auto) 0.8 10 ^3/uL (0-1.3); Monocytes % (auto) 8.5 % (0.0-12.0); Neutrophils # (auto) 5.9 10 ^3/uL (1.6-8.6); Neutrophils % (auto) 60.6 % (37.0-80.0); Nucleated Red Blood Cells % 0.6 %; Platelet Count (auto) 262 10^3/uL (140-450); Red Blood Cells 4.76 10^6/uL (4.0-5.20); Red Cell Distribution Width 13.1 % (11.8-14.3); White Blood Cell 9.7 10^3/uL (4.4-10.8)
[2020-02-28 16:15] LABS: Albumin 3.7 g/dL (3.4-5.0); Calcium 9.7 mg/dL (8.5-10.1); Potassium 3.9 mmol/L (3.5-5.1)
[2020-02-28 16:20] LABS: BUN/Creatinine Ratio 17.9; Bilirubin, Total 0.4 mg/dL (0.2-1.0); Total Protein 7.7 g/dL (6.4-8.2)
[2020-02-28 16:26] LABS: Free T4 (Free Thyroxine) 1.02 ng/dL (0.89-1.76)
== END | disposition home or self-care (01) ==
LOC: LAB 11:35
PROVIDERS: ATTEND Internal Medicine Cardiovascular Disease
DX: Z00.00 Encounter for general adult medical examination without abnormal findings (principal); E03.9 Hypothyroidism, unspecified; K90.9 Intestinal malabsorption, unspecified; N39.0 Urinary tract infection, site not specified; D51.9 Vitamin B12 deficiency anemia, unspecified; Z79.899 Other long term (current) drug therapy
CPT/HCPCS: 36415; 80053; 80061; 82306; 82607; 83036; 84439; 84443; 85025

== ENCOUNTER → 2020-03-03 | Outpatient (CLI) | payer BC | END | disposition home or self-care (01) | LOC: Rad HDHVI 11:18 | PROVIDERS: ATTEND Internal Medicine Cardiovascular Disease | DX: I08.0 Rheumatic disorders of both mitral and aortic valves (principal); I73.9 Peripheral vascular disease, unspecified; J44.9 Chronic obstructive pulmonary disease, unspecified; R06.02 Shortness of breath | CPT/HCPCS: 93306 ==

== ENCOUNTER → 2020-08-21 | Outpatient (CLI) | payer BC | END | disposition home or self-care (01) | LOC: Rad HDHVI 13:26 | PROVIDERS: ATTEND Internal Medicine Cardiovascular Disease | DX: R06.02 Shortness of breath (principal); M47.814 Spondylosis without myelopathy or radiculopathy, thoracic region; Z87.81 Personal history of (healed) traumatic fracture | CPT/HCPCS: 71046 ==

== ENCOUNTER → 2020-08-28 | Outpatient (CLI) | payer BC | END | disposition home or self-care (01) | LOC: Rad HDHVI 14:21 | PROVIDERS: ATTEND Internal Medicine Cardiovascular Disease | DX: J44.9 Chronic obstructive pulmonary disease, unspecified (principal); R00.2 Palpitations | CPT/HCPCS: 93306 ==

== ENCOUNTER → 2022-02-15 | Outpatient (CLI) | payer BC ==
[~2022-02-15] MED LIST changes: +PHEN-1325 PO; -PHEN37.563 PO
== END | disposition home or self-care (01) ==
LOC: Rad HDHVI 16:03
PROVIDERS: ATTEND Internal Medicine Cardiovascular Disease
DX: I51.7 Cardiomegaly (principal); R07.89 Other chest pain; I10 Essential (primary) hypertension
CPT/HCPCS: 93306

== ENCOUNTER → 2022-02-20 | Outpatient (CLI) | payer BC ==
[~2022-02-20] VITALS: Ht 157.5 cm; Wt 120.7 kg
[~2022-02-20] MED LIST changes: +ADENOSINE 101 MG in GIVE UN-DILUTED 0 ML IV ONE; +ADENOSINE 90 MG/30 ML INJ IV ONE
== END | disposition home or self-care (01) ==
LOC: Rad HDHVI 13:20
PROVIDERS: ATTEND Internal Medicine Cardiovascular Disease
DX: R07.9 Chest pain, unspecified (principal); R06.02 Shortness of breath; I25.2 Old myocardial infarction; E78.5 Hyperlipidemia, unspecified; E11.9 Type 2 diabetes mellitus without complications; I10 Essential (primary) hypertension; R60.9 Edema, unspecified; M47.814 Spondylosis without myelopathy or radiculopathy, thoracic region; I70.0 Atherosclerosis of aorta; Z82.49 Family history of ischemic heart disease and other diseases of the circulatory system
CPT/HCPCS: 71046; 78452; 82962; 93005; 96374; 96375; A9500; J0153

== ENCOUNTER → 2023-03-24 | Outpatient (CLI) | payer BC ==
[~2023-03-24] MED LIST changes: -ADENOSINE 101 MG in GIVE UN-DILUTED 0 ML IV ONE; -ADENOSINE 90 MG/30 ML INJ IV ONE; -PRO625LQ PO; +PROM6.2520 PO; +cefTRIAXone 1GM/50ML D5W 50 ML IV ONE
[2023-03-24 16:11] VITALS: BP 146/80; PULSE 96; RESP 22; O2SAT 98
[2023-03-24 16:51] VITALS: BP 125/63; PULSE 81; RESP 20; O2SAT 96
== END | disposition home or self-care (01) ==
LOC: CHF HDHVI 16:12
PROVIDERS: ATTEND Internal Medicine Cardiovascular Disease
DX: J18.9 Pneumonia, unspecified organism (principal); J02.0 Streptococcal pharyngitis; I10 Essential (primary) hypertension; I25.2 Old myocardial infarction; E11.9 Type 2 diabetes mellitus without complications; E78.5 Hyperlipidemia, unspecified
CPT/HCPCS: 96365; G0463; J0696

== ENCOUNTER → 2023-04-16 | Outpatient (CLI) | payer BC ==
[~2023-04-16] MED LIST changes: +ADENOSINE 90 MG/30 ML INJ IV ONE; +ADENOSINE 99 MG in GIVE UN-DILUTED 0 ML IV ONE; -cefTRIAXone 1GM/50ML D5W 50 ML IV ONE
== END | disposition home or self-care (01) ==
LOC: Rad HDHVI 14:29
PROVIDERS: ATTEND Internal Medicine Cardiovascular Disease
DX: R07.9 Chest pain, unspecified (principal); E11.9 Type 2 diabetes mellitus without complications; E78.5 Hyperlipidemia, unspecified; I10 Essential (primary) hypertension; J44.9 Chronic obstructive pulmonary disease, unspecified; J18.9 Pneumonia, unspecified organism; Z82.49 Family history of ischemic heart disease and other diseases of the circulatory system
CPT/HCPCS: 78452; 93005; 96374; 96375; A9500; J0153

== ENCOUNTER → 2024-01-14 | Outpatient (CLI) | payer BC ==
[~2024-01-14] MED LIST changes: -ADENOSINE 90 MG/30 ML INJ IV ONE; -ADENOSINE 99 MG in GIVE UN-DILUTED 0 ML IV ONE; -ASPI325T4 PO; +ASPI325T6 PO; -ZAFI1TAB PO; +ZAFI20TA14 PO
== END | disposition home or self-care (01) ==
LOC: Rad HDHVI 14:58
PROVIDERS: ATTEND Internal Medicine Cardiovascular Disease
DX: M79.672 Pain in left foot (principal)
CPT/HCPCS: 93925

== ENCOUNTER 2025-02-09 10:12 | Outpatient (CLI) | payer MEDICARE, OTHER ==
[~2025-02-09] VITALS: Ht 157.5 cm; Wt 118.8 kg
[2025-02-09] MEDS ORDERED: ADENOSINE 90 MG/30 ML INJ IV ONE (10:38)
[2025-02-09] MEDS ORDERED: ADENOSINE 100 MG in GIVE UN-DILUTED 0 ML IV ONE (11:30)
== END 2025-02-09 17:00 | disposition home or self-care (01) ==
LOC: Rad HDHVI 10:12
PROVIDERS: ATTEND Internal Medicine Cardiovascular Disease
DX: I49.1 Atrial premature depolarization (principal); I11.0 Hypertensive heart disease with heart failure; I50.33 Acute on chronic diastolic (congestive) heart failure; R07.89 Other chest pain; R06.00 Dyspnea, unspecified; R42 Dizziness and giddiness; E88.810 Metabolic syndrome; J44.9 Chronic obstructive pulmonary disease, unspecified; E11.40 Type 2 diabetes mellitus with diabetic neuropathy, unspecified; E78.00 Pure hypercholesterolemia, unspecified
CPT/HCPCS: 78452; 93017; A9500; J0153

== ENCOUNTER 2025-02-21 14:40 | Outpatient (CLI) | payer MEDICARE, OTHER | END 2025-02-21 17:00 | disposition home or self-care (01) | LOC: Rad HDHVI 14:40 | PROVIDERS: ATTEND Internal Medicine Cardiovascular Disease | DX: I11.9 Hypertensive heart disease without heart failure (principal) | CPT/HCPCS: 93306 ==

== ENCOUNTER 2025-03-02 16:21 | Outpatient (CLI) | payer MEDICARE, OTHER | END 2025-03-02 17:00 | disposition home or self-care (01) | LOC: Rad HDHVI 16:21 | PROVIDERS: ATTEND Internal Medicine Cardiovascular Disease | DX: I10 Essential (primary) hypertension (principal); R42 Dizziness and giddiness | CPT/HCPCS: 93880 ==